=== PATIENT | male | born 1965 | race African-American/Black ===

== ENCOUNTER 2016-11-03 23:30 | Emergency (ER) | payer BC ==
--- NOTE | ~2016-11-03 | CR253 ---
[facility] A Service of [facility] & [facility] RADIOLOGY TEXT RESULTS PATIENT: MICHELLE EDWARDS LOCATION: SED : 61 UNIT #: [id number] AGE: [address]: Vern Negron MD SEX: M ORDER DR: [id number] [place] [id number] E MR#: [id number] Acc #: [id number] NAME: MICHELLE EDWARDS : 1965 SEX: M STUDY DATE/TIME: 11/04/2016 0:04 UNIT: SED ROOM: STUDY DESCRIPTION: CR Tibia and Fibula 2 Views Rt Attending Physician: Vern Negron M.D. Ordering Physician: Vern Negron M.D. Primary Care Physician: Cesar Duncan D.O. MEDICAL IMAGING REPORT This report is preliminary unless electronic signature is present. EXAM Right lower leg 11/04/2016 HISTORY Medial-sided leg pain for 3 days. States sparring with person and kicked their head. FINDINGS 2 views of the right lower leg demonstrate minimal degenerative change of the right knee. 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 No fracture or dislocation. No periostitis. Soft tissues unremarkable. IMPRESSION No acute findings. Dictated by... Can Moreno M.D. THIS IS AN ELECTRONICALLY VERIFIED REPORT Can Moreno M.D. at 11/05/2016 10:34 PM ÁNGELA/latricia TD: 11/04/2016 06:52 JOB #: [id number] MEDICAL IMAGING REPORT Page 1 of 1
[~2016-11-03 23:30] MED LIST: ACYCLOVIR PO; ALBUTEROL17 GM INH; AMOXICILLIN500 M1 PO; AMOXICILLIN875 MG PO; AMOXIL500 M2 PO; BACTRIM DS TABL1 TA1 PO; BENTYL20 MG PO; BROMFED DM COU118 ML PO; CIPRO PO; DIFLUCAN PO; FLAGYL PO; NO MEDICATIONS; NORCO1 TAB 10/3 PO; PERCOCET 10/3251 TAB PO; PHENERGAN25 M1 PO; PREDNISONE PO; PREDNISONE10 MG PO; PREDNISONE50 MG PO; PRILOSEC PO; PROMETHAZI6.25 MG/5 PO; PROMETHAZINE D118 ML PO; SUDAFED PO; ULTRAM PO; VOLTAREN75 MG PO; ZITHROMAX PO; ZOFRANODT PO; ZYRTEC PO
== END 2016-11-04 01:11 | disposition home or self-care (01) ==
LOC: SED 23:30
DX: S80.11XA Contusion of right lower leg, initial encounter (principal); W51.XXXA Accidental striking against or bumped into by another person, initial encounter; Y92.9 Unspecified place or not applicable
CPT/HCPCS: 73590; 99283

== ENCOUNTER 2017-01-17 12:13 | Emergency (ER) | payer BC | END 2017-01-17 12:30 | disposition left against medical advice (07) | LOC: SED 12:13 | DX: Z53.21 Procedure and treatment not carried out due to patient leaving prior to being seen by health care provider (principal) ==